=== PATIENT | male | born 1955 | race Caucasian/White ===

== ENCOUNTER → 2016-05-12 | Outpatient (CLI) | payer BC ==
[2016-05-12 09:56] LABS: HEMATOCRIT 48.6 % (42.0-52.0); HEMOGLOBIN 16.3 g/dL (14.0-18.0); MEAN CORPUSCULAR HEMOGLOBIN 31.6 PG (27-31); MEAN CORPUSCULAR HGB CONC 33.5 g/dL (33-37); MEAN PLATELET VOLUME 8.6 FL (7.4-12.2); RDW COEFFICIENT OF VARIATION 13.8 % (11.5-14.5); RED BLOOD COUNT 5.16 10^6/uL (4.70-6.10); WHITE BLOOD COUNT 4.59 10^3/uL (4.8-10.8)
[2016-05-12 10:03] LABS: LDL CHOLESTEROL,CALCULATED 116.2 mg/dL
[2016-05-12 10:28] LABS: ASPARTATE AMINO TRANSFERASE 24 IU/L (21-57); BILIRUBIN,TOTAL 0.6 mg/dL (0.3-1.2); BLOOD UREA NITROGEN 16 mg/dL (7-22); BUN/CREATININE RATIO 14.54 (6-20); CALCIUM 9.2 mg/dL (8.7-10.7); CHLORIDE 106 meq/L (98-112); CREATININE 1.1 mg/dL (0.70-1.50); EST GLOMERULAR FILTRATION > 60 (>60 ml/min/1.73m(2)); GLUCOSE 93 mg/dL (78-110); POTASSIUM 4.3 meq/L (3.8-5.2); SODIUM 141 meq/L (135-145); TOTAL PROTEIN 6.7 g/dL (6.1-8.0)
== END ==
LOC: LAB 09:40
PROVIDERS: ATTEND Family Medicine
DX: Z00.00 Encounter for general adult medical examination without abnormal findings (principal); R53.83 Other fatigue; R97.20 Elevated prostate specific antigen [PSA]; Z12.5 Encounter for screening for malignant neoplasm of prostate
CPT/HCPCS: 36415; 80053; 80061; 83690; 84443; 85027; G0103